=== PATIENT | female | born 2000 | race Caucasian/White ===

== ENCOUNTER → 2020-09-02 | Outpatient (CLI) | payer OTHER ==
--- NOTE | 2020-09-02 17:50 | US ---
EXAMINATION TYPE: Ultrasound OB <= 14 week fetus DATE OF EXAM: 09/02/2020 3:14 PM COMPARISON: NONE CLINICAL HISTORY: 20-year-old female Z36 confirm dates. EXAM PERFORMED: Transabdominal (TA) FINDINGS: EXAM MEASUREMENTS: GESTATIONAL AGE / DATING Physician Established: Not yet established Dates by LMP: (12 weeks/5 days) EDC: 03/12/21 Dates by First Scan: No previous this is first scan Dates by Current Scan for: (8 weeks/5 days) EDC: 04/09/21 MATERNAL ANATOMY Uterus: 9.6 x 5.8 x 6.6 cm Right Ovary: 4.3 x 2.3 x 2.3cm Left Ovary: 2.6 x 1.4 x 1.5cm Post CDS / Adnexa: appears wnl Presence of free fluid: no Presence of corpus luteal cyst: yes, hypoechoic area right ovary = 2.0 x 2.1 x 1.7cm GESTATION / SURVEY CRL: 2.1cm (8 weeks/5 days) Yolk Sac (normal less than 6mm): 0.4cm Heart Rate: 172 bpm, upper limits of normal. Rhythm: Normal IUP: Viable IUP Date of LMP: 06/05/20 Beta HcG (if available): not available IMPRESSION: 1. Single live intrauterine with estimated gestational age of 12 weeks 5 days by LMP. Curre nt ultrasound biometry is smaller and discordant at 8 weeks 5 days by crown-rump length. Correlate fo r accuracy of recall of LMP. 2. Given heart rate at the upper limits of normal (172 BPM), short interval follow-up can be pe rformed. 3. A 2.1 cm corpus luteum within the right ovary.
== END | disposition home or self-care (01) ==
LOC: RADUSWWP 14:57
PROVIDERS: ATTEND Obstetrics & Gynecology
DX: Z36.89 Encounter for other specified antenatal screening (principal); Z3A.12 12 weeks gestation of pregnancy
CPT/HCPCS: 76801

== ENCOUNTER 2021-04-06 20:45 | Outpatient (CLI) | payer OTHER ==
[2021-04-06 22:32] VITALS: BP 123/78; PULSE 86; RESP 16; TEMP 97.3
--- NOTE | 2021-04-24 21:55 | P.MSEPDOC ---
Presenting Problems - Arrival Data Date of Arrival on Unit: 04/06/21 Time of Arrival on Unit: 20:43 Mode of Transport: Ambulatory - Complaint OB-Reason for Admission/Chief Complaint: Rule Out SROM Comment: Pt states contractions since 1500, unable to time them but pt states she cannot. stand up straight. Pt states leaking x2 days and has been wearing a pad. Medical History - Information : 1 Para: 0 Term: 0 : 0 Abortions: Spontaneous or Elective: 0 Number of Living Children: 0 - Gestational Age Gestational Age by MARGIE (wks/days): 39 Weeks and 1 Days Review of Systems - Review of Systems Constitutional: No problems Breast: No problems ENT: No problems Cardiovascular: No problems Respiratory: No problems Gastrointestinal: No problems Genitourinary: No problems Musculoskeletal: No problems Neurological: No problems Skin: No problems Vital Signs - Temperature Temperature: 97.3 F Temperature Source: Temporal Artery Scan - Pulse Right Brachial Pulse Rate: 86 Pulse Assessment Method: Automatic Cuff - Respirations Respiratory Rate: 16 Oxygen Delivery Method: Room Air O2 Sat by Pulse Oximetry: 99 - Blood Pressure Right Arm Blood Pressure: 123/78 Blood Pressure Mean: 93 Blood Pressure Source: Automatic Cuff Medical Screen Scoring - Cervical Exam Dilation (cm): 1 Effacement (%): 50 Station: -2 Membranes: Intact - Uterine Contractions Frequency From (mins): 2 Frequency To (mins): 7 Duration From (seconds): 40 Duration To (seconds): 100 Intensity: Mild Resting: Soft to palpation - Assessment - Baby A Baseline FHR: 125 Heart Rate - NICHD Category: Category I (Normal) Physician Notification - Physician Notified Physician Notified Date: 04/06/21 Physician Notified Time: 22:00 Physician: Georgie Nazario New Order Received: Yes - Notification Comment Comment: Orders to d/c pt home, follow up as planned WED for induction of labor. Maternal Triage Index - Maternal Triage Index Presenting for scheduled procedure w/no complaint: No - Stat/Priority 1 Stat Priority 1: No - Urgent/Priority 2 Urgent Priority 2: No - Prompt/Priority 3 Prompt Priority 3: No - Non-Urgent/Priority 4 Non-Urgent Priority 4: Yes Criteria Met for Priority 4: Pt states contractions since 1500, unable to time them but pt states she cannot. stand up straight. Pt states leaking x2 days and has been wearing a pad. Disposition - Disposition OB Disposition: Discharge to home, Written follow up instructions reviewed Discharge Date: 04/06/21 Discharge Time: 22:02 I agree with the RN Medical Screening Exam: Yes Case reviewed; plan agreed upon as documented in EMR&OBIX.: Yes Diagnosis: FALSE LABOR AT OR AFTER 37 COMPLETED WEEKS OF GESTATION
== END 2021-04-06 22:02 | disposition home or self-care (01) ==
LOC: FBPOP 20:45
PROVIDERS: ATTEND Obstetrics & Gynecology
DX: O47.1 False labor at or after 37 completed weeks of gestation (principal); Z3A.39 39 weeks gestation of pregnancy; Z88.5 Allergy status to narcotic agent
CPT/HCPCS: 59025; 84112; G0463; 99213

== ENCOUNTER 2021-04-08 06:19 | Inpatient (IN) | payer OTHER ==
[2021-04-08] MEDS ORDERED: TERBUTALINE 1 MG/ML VIAL SQ PRN (06:46)
[2021-04-08] MEDS ORDERED: METHYLERGONOVINE 0.2 MG/ML 1 ML AMP IM PRN (06:46)
[2021-04-08] MEDS ORDERED: OXYTOCIN 10 UNIT/ML 1 ML VIAL IM PRN (06:46)
[2021-04-08] MEDS ORDERED: CARBOPROST TROMETHAMINE 250 MCG/ML 1 ML AMP IM PRN (06:46)
[2021-04-08] MEDS ORDERED: LIDOCAINE 0.5% (PF) 5 MG/ML (50 ML SDV) SQ PRN (06:46)
[2021-04-08] MEDS ORDERED: OXYTOCIN 30 UNITS/500 ML NS 30 UNIT in SALINE 1 500ML.BAG IV SCH (07:00)
[2021-04-08] MEDS ORDERED: LACTATED RINGERS 1,000 ML IV SCH (07:00)
[2021-04-08 07:10] LABS: Basophils % (A) 0 %; Eosinophils # (A) 0.2 k/uL (0-0.7); Eosinophils % (A) 1 %; HGB 12.1 gm/dL (11.4-16.0); Lymphocytes # (A) 3.1 k/uL (1.0-4.8); Lymphocytes % (A) 21 %; MCH 31.1 pg (25.0-35.0); MCHC 34.6 g/dL (31.0-37.0); MCV 89.9 fL (80.0-100.0); Mean Platelet Volume 9.6; Monocytes # (A) 0.8 k/uL (0-1.0); Monocytes % (A) 6 %; Neutrophils # (A) 10.3 k/uL (1.3-7.7); Neutrophils % (A) 71 %; Platelet Count 200 k/uL (150-450); RBC 3.89 m/uL (3.80-5.40); RDW 13.5 % (11.5-15.5); WBC 14.5 k/uL (3.8-10.6)
--- NOTE | 2021-04-08 08:53 | P.HPOB ---
History of Present Illness H&P Date: 04/08/21 Chief Complaint: Intrauterine at term: new onset HSV Patient is a 20-year-old at 39 weeks 3 days gestation who was scheduled for an induction this morning. She noticed this last night she had a bump up by her clitoris and on inspection it appears that it is highly likely that it is a herpetic lesion and we are switching from a induction to a section. Risks/benefits/alternatives to this were reviewed with the patient in detail and all questions were answered for her prior to proceeding. We'll plan to do that later today. Will also start her on acyclovir in treatment dosing. Otherwise vital signs are stable and afebrile. As a category 1 tracing noted. Past Medical History Additional Past Medical History / Comment(s): Henoch Scholein Purpura, IBS, HSV History of Any Multi-Drug Resistant Organisms: None Reported Additional Past Surgical History / Comment(s): Benign cyst removal, left breast Past Anesthesia/Blood Transfusion Reactions: No Reported Reaction Past Psychological History: No Psychological Hx Reported Smoking Status: Current every day smoker Past Alcohol Use History: None Reported Past Drug Use History: Marijuana - Past Family History Mother Additional Family Medical History / Comment(s): Degenerative disk disorder, cervical cancer Medications and Allergies Home Medications Medication Instructions Recorded Confirmed Type Famotidine [Pepcid] 1 tab PO DAILY 04/06/21 04/08/21 History Pnv No.95/Ferrous Fum/Folic AC 1 tab PO DAILY 04/06/21 04/08/21 History [ Multivitamin Tablet] Allergies Allergy/AdvReac Type Severity Reaction Status Date / Time codeine Allergy Nausea & Verified 04/08/21 06:46 Vomiting Exam Osteopathic Statement: *. No significant issues noted on an osteopathic structural exam other than those noted in the History and Physical/Consult. Vital Signs Temp Pulse Resp BP 04/08/21 07:21 98.2 F 86 16 121/77 Intake and Output 04/07/21 04/08/21 04/08/21 22:59 06:59 14:59 Other: Weight 73.028 kg 73.028 kg - OBG Physical Exam Vulva: right: ulceration (Central periclitoral ulceration) Results Result Diagrams: 04/08/21 06:47 Abnormal Lab Results - Last 24 Hours (Table) 06/30/21 Range/Units 06:47 WBC 14.5 H (3.8-10.6) k/uL Neutrophils # 10.3 H (1.3-7.7) k/uL
[2021-04-08] MEDS ORDERED: CITRIC ACID-SODIUM CITRATE 15 ML CUP PO ONE (09:00)
[2021-04-08] MEDS ORDERED: ACYCLOVIR SODIUM 500 MG in SODIUM CHLORIDE 0.9% 100 ML IVPB SCH (09:30)
[2021-04-08] MEDS ORDERED: MORPHINE SULFATE (PF) 0.3 MG/0.3 ML SYR ONE (12:17)
[2021-04-08] MEDS ORDERED: ePHEDrine SULFATE/0.9% NACL/PF 50 MG/5 ML SYRINGE IV ONE (12:17)
[2021-04-08] MEDS ORDERED: ONDANSETRON 4 MG/2 ML VIAL ONE (12:17)
[2021-04-08] MEDS ORDERED: NALBUPHINE 10 MG/ML (1 ML AMP) ONE (12:17)
[2021-04-08] MEDS ORDERED: KETOROLAC 15 MG/ML 1 ML VIAL ONE (12:17)
[2021-04-08] MEDS ORDERED: PHENYLEPHRINE-0.9% NACL SYG 1,000 MCG/10 ML SYRINGE ONE (12:17)
[2021-04-08] MEDS ORDERED: OXYTOCIN 30 UNITS/500 ML NS BAG IV ONE (12:17)
[2021-04-08] MEDS ORDERED: ONDANSETRON 4 MG/2 ML VIAL IVP PRN (12:56)
[2021-04-08] MEDS ORDERED: diphenhydrAMINE 25 MG CAP PO PRN (12:56)
[2021-04-08] MEDS ORDERED: METOCLOPRAMIDE 5 MG/ML 2 ML VIAL IVP PRN (12:56)
[2021-04-08] MEDS ORDERED: ZOLPIDEM 5 MG TAB PO PRN (12:56)
[2021-04-08] MEDS ORDERED: SIMETHICONE 80 MG CHEWABLE PO PRN (12:56)
[2021-04-08] MEDS ORDERED: diphenhydrAMINE 50 MG/ML 1 ML VIAL IVP PRN ×2 (12:56)
[2021-04-08] MEDS ORDERED: NALOXONE 0.4 MG/ML 1 ML VIAL IV PRN ×2 (12:56→13:34)
[2021-04-08] MEDS ORDERED: diphenhydrAMINE 50 MG CAP PO PRN (12:56)
--- NOTE | 2021-04-08 13:02 | P.OP ---
Date of Procedure: 04/08/21 Preoperative Diagnosis: Uterine at term: Active herpetic lesion Postoperative Diagnosis: Same Procedure(s) Performed: Primary low transverse section Anesthesia: spinal Surgeon: Burak Robles Voice Pathologist #1: Yecenia Atkins Estimated Blood Loss (ml): 400 IV fluids (ml): 1,000 Urine output (ml): 100 Pathology: other (Placenta) Condition: stable Disposition: floor Operative Findings: Female scores were 9 and 9 at one and 5 minutes respectively weight was 6 lbs. 5 oz. Description of Procedure: Patient was taken to the operating suite where a spinal anesthetic was found be adequate. She was prepped and draped in the normal sterile fashion and placed in dorsal supine position with leftward tilt. Initially a Pfannenstiel skin incision was made and this incision was then carried through to the underlying layer of the fascia with the second knife. Fascia was then nicked in the midline and this opening was extended laterally with Merchant scissors. Superior and inferior aspect of this incision were then grasped tented up and bluntly and sharply dissected off the rectus muscles. Rectus muscles were then divided the midline and sharp dissection through the peritoneum was performed. This opening was then extended superiorly and inferiorly with good visualization of both bowel bladder. Bladder blade was then placed and bladder flap identified. It was entered with metastases scissors and carried across face uterus. Bladder was then bluntly dissected out of the operative field. Knife was then used to incise uterus and was fully developed with a hemostat. This opening was then extended bluntly and head was atraumatically delivered. A nuchal cord 1 was noted and easily reduced. Shoulders then delivered followed by the remainder th e baby. Mouth nares were bulb suctioned and nursery personnel was present to assume care as the umbilical cord was clamped cut usual fashion. Placenta was then delivered intact Pitocin was added to the IV. Uterus was then exteriorized cleared of clots and debris and closed in 2 layers with 0 Vicryl suture. Once excellent hemostasis was noted 3-0 Vicryl was used to reapproximate the bladder flap. Blood and debris was then suctioned the posterior cul-de-sac and uterus was reinserted into the abdomen. Peritoneal layer was then reapproximated with 0 Vicryl suture. Fascial layer was closed with 0 Vicryl suture. One layer of 3-0 Vicryl was deep subcuticular tissues to reapproximate skin and close space. Skin was then closed Sumeet. Sponge, lap, needle counts were all correct 2. Patient was then taken to the recovery room in stable and satisfactory condition.
[2021-04-08] MEDS ORDERED: MORPHINE SULFATE 2 MG/ML SYRINGE IVP PRN (13:34)
[2021-04-08] MEDS: LACTATED RINGERS 1,000 ML IV SCH ×2 (15:58→23:49)
[2021-04-08] MEDS: ACYCLOVIR 200 MG CAP PO SCH ×3 (16:25→23:50)
[2021-04-08] MEDS: ACETAMINOPHEN TAB 500 MG TAB PO SCH ×2 (16:25→23:50)
[2021-04-08] MEDS: KETOROLAC 15 MG/ML 1 ML VIAL IVP SCH ×2 (18:58→23:49)
[2021-04-08 20:20] LABS: Glucose,Whole Blood 88 mg/dL (75-99)
[2021-04-08] MEDS: SENNOSIDES-DOCUSATE SODIUM 1 EACH TAB PO SCH (20:53)
[2021-04-09] MEDS: ACETAMINOPHEN TAB 500 MG TAB PO SCH ×4 (04:44→23:37)
[2021-04-09] MEDS: LACTATED RINGERS 1,000 ML IV SCH (05:44)
[2021-04-09] MEDS: ACYCLOVIR 200 MG CAP PO SCH ×4 (05:52→19:57)
[2021-04-09] MEDS: KETOROLAC 15 MG/ML 1 ML VIAL IVP SCH (05:52)
--- NOTE | 2021-04-09 05:56 | P.PN ---
Progress Note - Text Progress Note Date: 04/09/21 Postoperative day 1 status post section under spinal anesthesia, and intrathecal morphine given for postoperative analgesia, patient doing well, there is no anesthesia related complications Patient had no headache, vital signs stable Assessment and plan = postop day 1 status post , doing well there is no anesthesia related complication
[2021-04-09 06:29] LABS: Basophils % (A) 0 %; Eosinophils # (A) 0.1 k/uL (0-0.7); Eosinophils % (A) 1 %; HCT 33.3 % (34.0-46.0); HGB 11.4 gm/dL (11.4-16.0); Lymphocytes # (A) 1.9 k/uL (1.0-4.8); Lymphocytes % (A) 11 %; MCH 31.2 pg (25.0-35.0); MCHC 34.3 g/dL (31.0-37.0); Mean Platelet Volume 9.7; Monocytes # (A) 0.9 k/uL (0-1.0); Monocytes % (A) 5 %; Neutrophils # (A) 13.7 k/uL (1.3-7.7); Neutrophils % (A) 82 %; Platelet Count 183 k/uL (150-450); RBC 3.66 m/uL (3.80-5.40); RDW 13.6 % (11.5-15.5); WBC 16.7 k/uL (3.8-10.6)
--- NOTE | 2021-04-09 08:05 | P.PNOBGPC ---
Subjective - Subjective Principal diagnosis: Postop day 1 Interval history: Sofia is doing very well postoperative day 1. She is ambulating, voiding and she is tolerating her diet. She voices no complaints. She does not want any narcotics for pain unless the pain becomes completely unbearable. We will rotate Tylenol and Motrin [id number]. All the questions are answered for her at this time. Objective - Vital Signs Latest vital signs: Vital Signs Temp Pulse Resp BP Pulse Ox 04/09/21 05:43 16 04/09/21 04:39 97.6 F 66 16 100/58 100 04/09/21 02:31 16 04/08/21 23:32 97 04/08/21 22:00 97.4 F L 68 16 102/62 97 04/08/21 20:20 75 16 99/62 97 04/08/21 18:00 18 04/08/21 16:26 18 04/08/21 14:55 98.0 F 64 16 109/60 04/08/21 14:25 75 16 122/64 100 04/08/21 13:55 97 16 129/62 99 04/08/21 13:40 87 16 124/61 99 04/08/21 13:25 104 H 16 119/69 99 04/08/21 13:10 90 16 128/69 99 04/08/21 12:55 96.0 F L 93 16 124/63 100 Intake and Output 04/08/21 04/09/21 04/09/21 22:59 06:59 14:59 Output Total 500 500 Balance -500 -500 Output: Urine 500 500 Uretheral (Neal) 200 Other: # Voids 2 - Exam Lungs: bilateral: normal Chest: Normal S1, Normal S2 Extremities: Present: normal Abdomen: Present: normal appearance, soft. Absent: distention, tenderness Incision: Present: normal (Clean dry and intact), dry, intact Uterus: Present: normal, firm - Labs Labs: Abnormal Lab Results - Last 24 Hours (Table) 04/09/21 Range/Units 06:03 WBC 16.7 H (3.8-10.6) k/uL RBC 3.66 L (3.80-5.40) m/uL Hct 33.3 L (34.0-46.0) % Neutrophils # 13.7 H (1.3-7.7) k/uL
[2021-04-09] MEDS: SENNOSIDES-DOCUSATE SODIUM 1 EACH TAB PO SCH ×2 (09:56→19:53)
[2021-04-09] MEDS: IBUPROFEN 600 MG TAB PO SCH ×3 (11:15→19:57)
[2021-04-10] MEDS: ACYCLOVIR 200 MG CAP PO SCH ×3 (00:06→11:13)
[2021-04-10] MEDS: ACETAMINOPHEN TAB 500 MG TAB PO SCH ×2 (05:25→07:36)
[2021-04-10] MEDS: IBUPROFEN 600 MG TAB PO SCH (06:16)
[2021-04-10] MEDS: SENNOSIDES-DOCUSATE SODIUM 1 EACH TAB PO SCH (07:36)
[2021-04-10 07:42] VITALS: BP 98/51; PULSE 75; RESP 18; TEMP 98.5
--- NOTE | 2021-04-15 17:37 | P.DS ---
Providers Date of admission: 04/08/21 06:19 Expected date of discharge: 04/15/21 Attending physician: Burak Robles Primary care physician: Stated None Hospital Course: Patient is discharged home on postop day 2 in stable and satisfactory condition. Her vital signs were stable and she was afebrile. Heart regular, lungs clear, extremities without pain. Abdomen soft her incision is clean dry and intact. We'll plan have her follow up with me in 1 week. Discharge instructions were otherwise reviewed and she is stable for discharge. Pain medications or for her to perform same. All the questions are answered for her prior to her discharge. Patient Condition at Discharge: Good Plan - Discharge Summary New Discharge Prescriptions: New Acyclovir [Zovirax] 200 mg PO 5XD 7 Days #35 capsule Ibuprofen [Motrin] 600 mg PO Q6HR PRN #30 tab PRN Reason: Pain No Action Famotidine [Pepcid] 1 tab PO DAILY Pnv No.95/Ferrous Fum/Folic AC [ Multivitamin Tablet] 1 tab PO DAILY Discharge Medication List Famotidine [Pepcid] 1 tab PO DAILY 04/06/21 [History] Pnv No.95/Ferrous Fum/Folic AC [ Multivitamin Tablet] 1 tab PO DAILY 04/06/21 [History] Acyclovir [Zovirax] 200 mg PO 5XD 7 Days #35 capsule 04/10/21 [Rx] Ibuprofen [Motrin] 600 mg PO Q6HR PRN #30 tab 04/10/21 [Rx] Follow up Appointment(s)/Referral(s): Burak Robles DO [Doctor of Osteopathic Medicine] - 1 Week Activity/Diet/Wound Care/Special Instructions: Heavy lifting, limit stairs and driving, and pelvic rest. If any high temperatures, heavy bleeding, or severe pain call my office Discharge Disposition: HOME SELF-CARE
== END 2021-04-10 12:15 | disposition home or self-care (01) | DRG 788 ==
LOC: 4FBP 06:19
PROVIDERS: ADMIT Obstetrics & Gynecology; ATTEND Obstetrics & Gynecology
PROC: 10D00Z1 Extraction of Products of Conception, Low, Open Approach (ICD-10-PCS; principal; 2021-04-08 12:00)
DX: O98.513 Other viral diseases complicating pregnancy, third trimester (principal); O99.334 Smoking (tobacco) complicating childbirth; F17.200 Nicotine dependence, unspecified, uncomplicated; Z37.0 Single live birth; Z3A.39 39 weeks gestation of pregnancy; Z80.49 Family history of malignant neoplasm of other genital organs
CPT/HCPCS: 85025; 86850; 86900; 86901; 88307

== ENCOUNTER 2021-05-05 13:32 | Emergency (ER) | payer OTHER ==
[2021-05-05] MEDS ORDERED: SODIUM CHLORIDE 0.9% 1,000 ML IV STA (13:43)
[2021-05-05 13:47] VITALS: TEMP 98.3
[2021-05-05 14:10] LABS: Basophils % (A) 1 %; Eosinophils # (A) 0.2 k/uL (0-0.7); Eosinophils % (A) 3 %; HCT 42.3 % (34.0-46.0); HGB 13.6 gm/dL (11.4-16.0); Lymphocytes # (A) 2.9 k/uL (1.0-4.8); Lymphocytes % (A) 40 %; MCH 30.2 pg (25.0-35.0); MCHC 32.2 g/dL (31.0-37.0); MCV 93.8 fL (80.0-100.0); Mean Platelet Volume 8.7; Monocytes # (A) 0.4 k/uL (0-1.0); Monocytes % (A) 6 %; Neutrophils # (A) 3.7 k/uL (1.3-7.7); Neutrophils % (A) 50 %; Platelet Count 266 k/uL (150-450); RBC 4.51 m/uL (3.80-5.40); RDW 12.9 % (11.5-15.5); WBC 7.4 k/uL (3.8-10.6)
[2021-05-05 14:21] LABS: ALT 16 U/L (4-34); African American GFR (CKD) >90 (>60 ml/min/1.73 sqM); Anion Gap 8 mmol/L; Blood Urea Nitrogen 15 mg/dL (7-17); Calcium 9.7 mg/dL (8.4-10.2); Carbon Dioxide 22 mmol/L (22-30); Chloride 109 mmol/L (98-107); Glucose 94 mg/dL (74-99); Non-African American GFR(CKD) >90 (>60 ml/min/1.73 sqM); Sodium 139 mmol/L (137-145); Total Bilirubin 0.6 mg/dL (0.2-1.3)
[2021-05-05 14:26] LABS: Magnesium 1.8 mg/dL (1.6-2.3); Potassium 5.1 mmol/L (3.5-5.1)
[2021-05-05 14:27] LABS: AST 30 U/L (14-36); Albumin 4.3 g/dL (3.5-5.0); Alkaline Phosphatase 105 U/L (38-126); Total Protein 7.3 g/dL (6.3-8.2)
--- NOTE | 2021-05-05 14:55 | CT ---
EXAMINATION TYPE: CT brain wo con DATE OF EXAM: 05/05/2021 COMPARISON: None INDICATION: possible seizure DLP: 1084.4 mGycm, Automated exposure control for dose reduction was used. CONTRAST: None CT of the brain is performed utilizing 3 mm thick sections through the posterior fossa and 3 mm thick sections through the remaining calvarium. Study is performed within 24 hours of arrival to the hosp ital. No abnormal hyperdensity is present to suggest an acute intracranial hemorrhage. No mass lesion is evident. No acute infarcts are evident. Ventricles and sulci are appropriate for the patient age. Paranasal sinuses and mastoid air cells within the [id number] are clear. IMPRESSIONS: 1. Normal CT Brain
[2021-05-05 15:42] LABS: Appearance,Urine Clear (Clear); Bacteria,Urine Rare /hpf; Bilirubin,Urine Negative (Negative); Blood,Urine Moderate (Negative); Color,Urine Light Yellow; Glucose,Urine (UA) Negative (Negative); Hyaline Casts,Urine 1 /lpf (0-2); Ketones,Urine Negative (Negative); Leukocyte Esterase,Urine Negative (Negative); Mucus,Urine Rare /hpf; Nitrite,Urine Negative (Negative); PH, Urine 5.5 (5.0-8.0); Protein,Urine Negative (Negative); RBC,Urine 1 /hpf (0-5); Specific Gravity,Urine 1.006 (1.001-1.035); Squamous Epithelial Cell,Urine 3 /hpf (0-4); Urobilinogen,Urine <2.0 mg/dL (<2.0); WBC,Urine 4 /hpf (0-5)
--- NOTE | 2021-05-05 15:58 | ED ---
Seizure HPI - General Chief Complaint: Seizure Stated Complaint: seizure Time Seen by Provider: 05/05/21 13:36 Source: patient, EMS, RN notes reviewed Mode of arrival: EMS Limitations: no limitations - History of Present Illness Initial Comments: Patient is a 21-year-old female that presents to emergency department for new onset seizure. Boyfriend notes and told EMS that patient began having body convulsions fell on the stairs and bumped her head. EMS notes that she began to wake up on the right over was alert and oriented was minute with postictal period noted that her vital signs are stable. Patient noted that she felt fine while sitting up in bed during exam and interview. She denied any history of seizure or head trauma. She noted that she was feeling well. She noted that she recently had a at the end of March and has been follow-up with [facility] as planned. She denied any chest pain first breath headache nausea vomiting diarrhea constipation fever fatigue chills. - Related Data Home Medications Medication Instructions Recorded Confirmed No Known Home Medications 05/05/21 05/05/21 Allergies Allergy/AdvReac Type Severity Reaction Status Date / Time codeine Allergy Nausea & Verified 05/05/21 14:59 Vomiting Review of Systems ROS Statement: Those systems with pertinent positive or pertinent negative responses have been documented in the HPI. ROS Other: All systems not noted in ROS Statement are negative. Past Medical History Additional Past Medical History / Comment(s): Henoch Scholein Purpura, IBS, HSV History of Any Multi-Drug Resistant Organisms: None Reported Past Surgical History: Section Additional Past Surgical History / Comment(s): Benign cyst removal, left breast Past Anesthesia/Blood Transfusion Reactions: No Reported Reaction Past Psychological History: No Psychological Hx Reported Smoking Status: Current every day smoker Past Alcohol Use History: Occasional Past Drug Use History: Marijuana - Past Family History Mother Additional Family Medical History / Comment(s): Degenerative disk disorder, cervical cancer General Exam Limitations: no limitations General appearance: alert, in no apparent distress Head exam: Present: atraumatic, normocephalic, normal inspection Eye exam: Present: normal appearance, PERRL, EOMI. Absent: scleral icterus, conjunctival injection, periorbital swelling Neck exam: Present: normal inspection Respiratory exam: Present: normal lung sounds bilaterally. Absent: respiratory distress, wheezes, rales, rhonchi, stridor Cardiovascular Exam: Present: regular rate, normal rhythm, normal heart sounds. Absent: systolic murmur, diastolic murmur, rubs, gallop, clicks GI/Abdominal exam: Present: soft, normal bowel sounds. Absent: distended, tenderness, guarding, rebound, rigid Extremities exam: Present: normal inspection, full ROM, normal capillary refill. Absent: tenderness, pedal edema, joint swelling, calf tenderness Neurological exam: Present: alert, oriented X3, CN II-XII intact Expanded Patient oriented to: Present: person, place, time Speech: Present: fluid speech Cranial nerves: EOM's Intact: Normal, Nystagmus: Normal Cerebellar function: Finger to Nose: Normal, Heel to Bhatt: Normal Sensory exam: Upper Extremity Light Touch: Normal, Lower Extremity Light Touch: Normal Motor strength exam: RUE: 5, LUE: 5, RLE: 5, LLE: 5 Psychiatric exam: Present: normal affect, normal mood Skin exam: Present: warm, dry, intact, normal color. Absent: rash Course Vital Signs 05/05/21 13:44 Temperature 98.3 F Pulse Rate 102 H Respiratory 20 Rate Blood Pressure 119/81 O2 Sat by Pulse 100 Oximetry Medical Decision Making - Medical Decision Making 21-year-old female with new onset seizure. Labs, CT of the brain, 1 L normal saline, EKG ordered. Labs unremarkable, urinalysis unremarkable. CT of the brain negative for any acute process. Patient states she is feeling well enough to discharge home with follow-up to primary care in seizure clinic. Case discussed with Dr. Franklin, patient discharge home in stable condition. - Lab Data Result diagrams: 05/05/21 14:02 05/05/21 14:02 Lab Results 05/05/21 05/05/21 05/05/21 Range/Units 14:02 14:02 15:24 WBC 7.4 (3.8-10.6) k/uL RBC 4.51 (3.80-5.40) m/uL Hgb 13.6 (11.4-16.0) gm/dL Hct 42.3 (34.0-46.0) % MCV 93.8 (80.0-100.0) fL MCH 30.2 (25.0-35.0) pg MCHC 32.2 (31.0-37.0) g/dL RDW 12.9 (11.5-15.5) % Plt Count 266 (150-450) k/uL MPV 8.7 Neutrophils % 50 % Lymphocytes % 40 % Monocytes % 6 % Eosinophils % 3 % Basophils % 1 % Neutrophils # 3.7 (1.3-7.7) k/uL Lymphocytes # 2.9 (1.0-4.8) k/uL Monocytes # 0.4 (0-1.0) k/uL Eosinophils # 0.2 (0-0.7) k/uL Basophils # 0.0 (0-0.2) k/uL Sodium 139 (137-145) mmol/L Potassium 5.1 (3.5-5.1) mmol/L Chloride 109 H (98-107) mmol/L Carbon Dioxide 22 (22-30) mmol/L Anion Gap 8 mmol/L BUN 15 (7-17) mg/dL Creatinine 0.74 (0.52-1.04) mg/dL Est GFR (CKD-EPI)AfAm >90 (>60 ml/min/1.73 sqM) Est GFR (CKD-EPI)NonAf >90 (>60 ml/min/1.73 sqM) Glucose 94 (74-99) mg/dL Calcium 9.7 (8.4-10.2) mg/dL Magnesium 1.8 (1.6-2.3) mg/dL Total Bilirubin 0.6 (0.2-1.3) mg/dL AST 30 (14-36) U/L ALT 16 (4-34) U/L Alkaline Phosphatase 105 (38-126) U/L Total Protein 7.3 (6.3-8.2) g/dL Albumin 4.3 (3.5-5.0) g/dL Urine Color Light Yellow Urine Appearance Clear (Clear) Urine pH 5.5 (5.0-8.0) Ur Specific Douglas 1.006 (1.001-1.035) Urine Protein Negative (Negative) Urine Glucose (UA) Negative (Negative) Urine Ketones Negative (Negative) Urine Blood Moderate H (Negative) Urine Nitrite Negative (Negative) Urine Bilirubin Negative (Negative) Urine Urobilinogen <2.0 (<2.0) mg/dL Ur Leukocyte Esterase Negative (Negative) Urine RBC 1 (0-5) /hpf Urine WBC 4 (0-5) /hpf Ur Squamous Epith Cells 3 (0-4) /hpf Urine Bacteria Rare H (None) /hpf Hyaline Casts 1 (0-2) /lpf Urine Mucus Rare H (None) /hpf - EKG Data -: EKG Interpreted by Me EKG shows normal: sinus rhythm Rate: normal EKG Comments: Ventricular rate 83 bpm, FL interval 118 ms, QRS duration 82 ms, QTC 458 ms, PRT axes 34/48/29. Normal sinus rhythm. Normal EKG. - Radiology Data Radiology results: report reviewed, image reviewed CT of the brain: Normal CT of the brain. Disposition Clinical Impression: New onset seizure Disposition: HOME SELF-CARE Condition: Stable Instructions (If sedation given, give patient instructions): Seizure/Epilepsy Discharge Instructions & Follow-Up Additional Instructions: Please return to the Emergency Department if symptoms worsen or any other concerns. Follow-up with seizure clinic in the next 1-2 days. Increase oral fluids. Is patient prescribed a controlled substance at d/c from ED?: No Referrals: Kiran Moser MD [Primary Care Provider] - 1-2 days Time of Disposition: 15:58
[2021-05-05 16:00] LABS: Amphetamine Screen,Urine Not Detected (NotDetected); Barbiturate Screen,Urine Not Detected (NotDetected); Benzodiazepines Screen,Urine Not Detected (NotDetected); Cocaine Screen,Urine Not Detected (NotDetected); Methadone Screen, Urine Not Detected (NotDetected); Opiate Screen,Urine Not Detected (NotDetected); Oxycodone Screen, Urine Not Detected (NotDetected); Phencyclidine Screen,Urine Not Detected (NotDetected); Tricyclic Antidepressant,Urine Not Detected (NotDetected); Urn Cannabinoid Scrn Detected (NotDetected)
[2021-05-05 16:14] VITALS: BP 111/72; PULSE 80; RESP 18
== END 2021-05-05 16:17 | disposition home or self-care (01) ==
LOC: EC 13:32
DX: R56.9 Unspecified convulsions (principal); F17.200 Nicotine dependence, unspecified, uncomplicated; F12.90 Cannabis use, unspecified, uncomplicated; Z88.5 Allergy status to narcotic agent
CPT/HCPCS: 36415; 70450; 80053; 80306; 81001; 83735; 85025; 93005; 96360; 99285

== ENCOUNTER → 2023-05-10 | Outpatient (CLI) | payer OTHER ==
--- NOTE | 2023-05-10 18:26 | US ---
EXAMINATION TYPE: US pelvic complete DATE OF EXAM: 05/10/2023 COMPARISON: NONE CLINICAL INDICATION: Female, 23 years old with history of R10.2 PELVIC AND PERINEAL PAIN; Pt states p elvic cramping TECHNIQUE: Transabdominal (TA). Transabdominal sonographic images of the pelvis were acquired. Date of LMP: 05/02/2023 EXAM MEASUREMENTS: Uterus: 8.5 x 3.3 x 5.1 cm Endometrial Stripe: 0.8 cm Right Ovary: 3.1 x 3.1 x 2.2 cm Left Ovary: 2.2 x 1.8 x 1.8 cm 1. Uterus: Anteverted wnl 2. Endometrium: wnl 3. Right Ovary: Dominant follicle= 1.8 x 1.5 x 1.7 cm 4. Left Ovary: wnl 5. Bilateral Adnexa: wnl 6. Posterior cul-de-sac: wnl Unremarkable anteverted appearance of the uterus. Endometrium is within normal limits. Both ovaries u nremarkable with dominant right ovarian follicle. No free fluid. IMPRESSION: No ultrasound evidence for an acute pelvic process.
== END | disposition home or self-care (01) ==
LOC: RADUSWWP 16:11
PROVIDERS: ATTEND Family Medicine
DX: R10.2 Pelvic and perineal pain (principal)
CPT/HCPCS: 76856